=== PATIENT | female | born 1995 ===

== ENCOUNTER 2023-02-01 08:15 | Outpatient (RCR) | payer OTHER, SELFPAY ==
[2023-01-14 11:36] VITALS: BP 104/60; PULSE 80; TEMP 36.9
[2023-01-14 11:45] VITALS: BMI 30.4
--- NOTE | 2023-01-14 12:25 | PC.ADMIT ---
Patient is a 27 year old single female who self referred to PHP d/t increased depression and anxiety. Patient reports she graduated from [employer] in 2019 as a language major in [employer] and [employer] studies and does not feel motivated to take the next step. She feels stuck in her life and has no structure and is not employed. Stated her mother supports her financially. She is currently living with a roommate in a apartment. She reports her roommate is supportive along with her mother. Patient reports she is grieving her father who had suddenly after a car accident in 2019. Her greatest fear is her mother passing and she will be alone and will not be able to support herself. Patient is alert and oriented x4. Calm and cooperative. Presented with depressed mood and affect. Patient denied SI. Patient given a copy of her safety plan and I reviewed her safety plan with her. Medications reconciled with patient and patient's pharmacy. Patient reports taking medications as prescribed.
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
--- NOTE | 2023-01-18 08:16 | HO.PHP ---
The clients case was reviewed and opened in treatment team
--- NOTE | 2023-01-22 11:37 | HO.PHPPROGNO ---
Subjective Subjective Date of Service: 01/22/23 Reason For Visit: anxiety,depression Medical Problems Affecting Mental Status: No Interim History: Continues with depressed mood, states overall though feels ?good ?. Reports that she had some moments over the weekend that were difficult. No SI, no safety concerns. Medication Compliance: Intermittent Side effects from medications: No Attending Groups: Yes Review of Systems Acute medical concerns: No Medical Review of Systems: unchanged Review of Systems Review of Systems Yes all other systems are reviewed and are negative Constitutional: Reports no additional constitutional complaints Mental Status Exam Mental Status Exam Narrative: NAD Patient Appearance: Appropriate Patient Orientation: Person, Place, Time and Situation Level of Consciousness: Appropriate Patient Behavior: Appropriate, Cooperative and Good Eye Contact Mood Description: Depressed and Anxious Affect Description: Appropriate Patient Cognition Impaired: No Ability to Follow Directions: Excellent Speech Pattern: Clear Memory Description: Intact Hallucinations: None Delusions: Not Present Thought Process: Intact Thought Content: positive for Intact Depressive Symptoms: Increased Anxiety, Diff. Making Decisions, Sleeping More Than Usual, Loss of Int. in Activity, Loss of Energy and Difficulty Concentrating Judgement: Fair Diagnostics Vital Signs (24Hr): BMI result Body Mass Index 30.4 Assessment & Plan Assessment & Plan (1) Depression, major, recurrent, moderate: Status: Acute Code(s): F33.1 - Major depressive disorder, recurrent, moderate Assessment and Plan: Continues with depressed mood, some anxiety. No SI, no safety concerns. Has not yet tried the increased dose of Wellbutrin 450. Has been taking 300. We discussed staying at the 300mg dose, as she appears to be less depressed. She states however that she does feel depressed, and would prefer to filler picker the prescription today and try the higher dose. Reviewed side effects, patient was instructed to stop taking the higher dose is experiences agitation, increased anxiety, headache, nausea, rapid heartbeat, dizziness. She stated she understood. (2) Generalized anxiety disorder: Status: Acute Code(s): F41.1 - Generalized anxiety disorder Plan 1. Continue with current [facility] plan of care. 2. Patient to trial increased dose of Wellbutrin, she has not yet picked up from pharmacy that was ordered last week. 3. Follow-up as per protocol. Patient educated on: diagnosis, medication risk/benefits and therapeutic strategies Informed Consent: understands Reason for contiued partial hosp. stay Substantial Risk for: inability to function and rapid decompensation Certification I certify that partial hospital treatment is medically necessary due to the symptoms and problems resulting from the patient's mental illness and the failure to treat the patient at the partial hospital level of care would likely result in the patient requiring inpatient psychiatric care which could not be prevented at a less intensive level of care. Total time managing care of this patient today __20__ minutes. Discharge Plan Discharge Attending provider: Hari Duckworth Medications: New bupropion HCl 450 mg tablet extended release 24 hr 450 mg PO DAILY Qty: 7 0RF No Action spironolactone 50 mg tablet 50 mg PO DAILY escitalopram oxalate 20 mg tablet 20 mg PO DAILY
--- NOTE | 2023-01-25 09:23 | PC.NURSE ---
Kelly called the program to let us know that she will be out today as she did not sleep well last night. [facility] staff is aware.
--- NOTE | 2023-01-29 14:49 | HO.PHPPROGNO ---
Subjective Subjective Date of Service: 01/29/23 Reason For Visit: anxiety,depression Medical Problems Affecting Mental Status: No Interim History: Describes mood as ?pretty good ?. States that she feels stable, no concerns. No SI, no thoughts of harm to self or others in any way. Never took the increased dose of Wellbutrin, has remained on her current dose. States that it is working well, no concerns. Has difficulties getting the increased dose filled by pharmacy. No longer wants the increased dose. No concerns regarding sleep. Feels stable for discharge from [facility], tomorrow will be her last day. Medication Compliance: Yes Side effects from medications: No Attending Groups: Yes Review of Systems Acute medical concerns: No Medical Review of Systems: unchanged Review of Systems Review of Systems Yes all other systems are reviewed and are negative Constitutional: Reports no additional constitutional complaints Mental Status Exam Mental Status Exam Narrative: NAD Patient Appearance: Appropriate Patient Orientation: Person, Place, Time and Situation Level of Consciousness: Appropriate Patient Behavior: Appropriate, Cooperative and Good Eye Contact Mood Description: Happy and Appropriate Affect Description: Happy (bright affect, mood congruent) and Appropriate Patient Cognition Impaired: No Ability to Follow Directions: Excellent Speech Pattern: Clear Memory Description: Intact Hallucinations: None Delusions: Not Present Thought Process: Intact Thought Content: positive for Intact Judgement: Good Diagnostics Vital Signs (24Hr): BMI result Body Mass Index 30.4 Assessment & Plan Assessment & Plan (1) Depression, major, recurrent, moderate: Status: Acute Code(s): F33.1 - Major depressive disorder, recurrent, moderate Assessment and Plan: Describes mood as ?pretty good ?. States that she feels stable, no concerns. No SI, no thoughts of harm to self or others in any way. Never took the increased dose of Wellbutrin, has remained on her current dose. States that it is working well, no concerns. Has difficulties getting the increased dose filled by pharmacy. No longer wants the increased dose. No concerns regarding sleep. Feels stable for discharge from [facility], tomorrow will be her last day. States that she has found the groups helpful, but feels she is ready to leave. Continues to live in an apartment with friend, home she has described as supportive. (2) Generalized anxiety disorder: Status: Acute Code(s): F41.1 - Generalized anxiety disorder Plan 1. Patient appears stable for discharge from [facility]. Patient to discharge tomorrow being her last day. 2. Plan is to follow-up with outpatient providers going forward. Patient educated on: diagnosis, medication risk/benefits and therapeutic strategies Informed Consent: understands Reason for contiued partial hosp. stay Substantial Risk for: stable for discharge Certification I certify that partial hospital treatment is medically necessary due to the symptoms and problems resulting from the patient's mental illness and the failure to treat the patient at the partial hospital level of care would likely result in the patient requiring inpatient psychiatric care which could not be prevented at a less intensive level of care. Total time managing care of this patient today __20__ minutes. Discharge Plan Discharge Attending provider: Hari Duckworth Medications: New bupropion HCl 450 mg tablet extended release 24 hr 450 mg PO DAILY Qty: 7 0RF No Action spironolactone 50 mg tablet 50 mg PO DAILY escitalopram oxalate 20 mg tablet 20 mg PO DAILY
== END 2023-02-01 23:59 | disposition home or self-care (01) ==
LOC: HO.PHPA 08:15
PROVIDERS: Visit Provider Psychiatry & Neurology Psychiatry
DX: F33.1 Major depressive disorder, recurrent, moderate (principal); F41.1 Generalized anxiety disorder; Z79.899 Other long term (current) drug therapy
CPT/HCPCS: 90791; 90853